=== PATIENT | male | born 1980 | race Asian ===

== ENCOUNTER 2017-09-25 14:37 | Emergency (ER) | payer OTHER ==
[~2017-09-25] VITALS: Ht 170.2 cm; Wt 85.0 kg
[2017-09-25 15:25] VITALS: BP 135/91
[2017-09-25] MEDS ORDERED: LIDOCAINE HCL 1% 10 ML VIAL INJ ONE (15:45)
[2017-09-25] MEDS ORDERED: BACITRACIN 0.9 GM PACKET OINTMENT TP ONE (15:45)
== END 2017-09-25 16:44 | disposition home or self-care (01) ==
LOC: EMS 14:39
DX: S61.210A Laceration without foreign body of right index finger without damage to nail, initial encounter (principal); X58.XXXA Exposure to other specified factors, initial encounter; Y93.67 Activity, basketball; Y92.310 Basketball court as the place of occurrence of the external cause; Y99.8 Other external cause status
CPT/HCPCS: 12001; 73130; 99284; J3490